=== PATIENT | male | born 2000 | race Two or more races ===

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

== ENCOUNTER 2021-09-21 14:39 | Emergency (ER) | payer MEDICAID ==
[2021-09-21] MEDS ORDERED: IBUP800T27 PO (17:00)
[2021-09-21 17:13] VITALS: BP 154/98
== END 2021-09-21 17:30 | disposition home or self-care (01) ==
LOC: ER 14:39
DX: M25.572 Pain in left ankle and joints of left foot (principal); R20.0 Anesthesia of skin; J45.909 Unspecified asthma, uncomplicated; X58.XXXA Exposure to other specified factors, initial encounter; Y93.89 Activity, other specified; Y92.89 Other specified places as the place of occurrence of the external cause; Y99.8 Other external cause status

== ENCOUNTER 2023-07-30 23:58 | Emergency (ER) | payer MEDICAID ==
[~2023-07-30] VITALS: Ht 177.8 cm; Wt 102.0 kg
[~2023-07-30 23:58] MED LIST: IBUP-1456 PO
[2023-07-31] MEDS: ONDANSETRON ODT 4 MG TAB PO ONE (00:44)
[2023-07-31] MEDS: HYDROcodone-ACET 10/325MG TAB PO ONE (00:44)
[2023-07-31] MEDS ORDERED: ACE3T PO (01:53)
[2023-07-31] MEDS ORDERED: IBUP-1455 PO (01:53)
[2023-07-31 02:04] VITALS: BP 114/67; PULSE 68; RESP 18; TEMP 97.5; O2SAT 97
== END 2023-07-31 02:06 | disposition home or self-care (01) ==
LOC: ER 23:58
DX: S16.1XXA Strain of muscle, fascia and tendon at neck level, initial encounter (principal); S09.8XXA Other specified injuries of head, initial encounter; J45.909 Unspecified asthma, uncomplicated; W18.09XA Striking against other object with subsequent fall, initial encounter; Y93.89 Activity, other specified; Y92.89 Other specified places as the place of occurrence of the external cause; Y99.8 Other external cause status
CPT/HCPCS: 70450; 72125; 99284; Q0162

== ENCOUNTER 2024-02-13 15:01 | Emergency (ER) | payer MEDICAID ==
[~2024-02-13] VITALS: Ht 177.8 cm; Wt 98.8 kg
[~2024-02-13 15:01] MED LIST changes: +ACE3T PO; +IBUP-1455 PO
[2024-02-13 15:18] VITALS: BP 127/75; PULSE 65; RESP 16; O2SAT 97
[2024-02-13] MEDS: ONDANSETRON ODT 4 MG TAB PO ONE (15:59)
[2024-02-13] MEDS: ACETAMINOPHEN 325 MG TAB PO ONE (15:59)
[2024-02-13 16:56] VITALS: TEMP 98
[2024-02-13] MEDS ORDERED: IBUP-1454 PO (16:57)
[2024-02-13] MEDS ORDERED: PROM1SOL4 PO (16:57)
[2024-02-13] MEDS ORDERED: ZOFR4T PO (16:57)
--- NOTE | 2024-02-13 16:57 | ED.PDOC ---
History of Present Illness HPI Comments 23-year-old male with a MHx presents with a chief complaint of URI symptoms x3 days. Not taking medications for the symptoms listed above Denies fevers chills night sweats unintentional weight loss Denies persistent chest pain, shortness of breath, leg swelling Denies history of asthma nor any breathing conditions Denies history of pneumonia Denies recent international travel Chief Complaint: Fever Time Seen by MD: 15:05 Past Medical History PAST MEDICAL HISTORY: Asthma Surgical History: Denies all surgeries Family History Family History: Unknown Social History Smoker: Non-Smoker Alcohol: Rarely Drugs: Denies Drug Use Lives In: Home All Other Systems: Reviewed and Negative (per hpi) Physical Exam General Appearance: No Apparent Distress, Normal HEENT: Normal ENT Inspection, Pharynx Normal, TMs Normal Neck: Full Range of Motion, Non-Tender, Normal, Normal Inspection Respiratory: Chest Non-Tender, Lungs Clear, No Accessory Muscle Use, No Respiratory Distress, Normal Breath Sounds Cardiovascular: No Edema, No JVD, No Murmur, No Gallop, Normal Peripheral Puls es, Regular Rate/Rhythm Breast Exam: Deferred Gastrointestinal: No Organomegaly, Non Tender, No Pulsatile Mass, Normal Bowel Sounds, Soft Genitalia: Deferred Pelvic: Deferred Rectal: Deferred Extremities: No calf tenderness, Normal capillary refill, Normal inspection, Normal range of motion, Non-tender, No pedal edema Musculoskeletal : Apperance: Normal Neurologic: Alert, manager social services II-XII nml as Tested, No Motor Deficits, Normal Affect, Normal Mood, No Sensory Deficits Cerebellar Function: Normal Reflexes: Normal Skin: Dry, Normal Color, Warm Lymphatic: No Adenopathy Was a procedure done? Was a procedure done?: No Fever Differential Dx Differential Diagnosis: Viral Syndrome X-Ray, Labs, Meds, VS Vital Signs Date Time Temp Pulse Resp B/P (MAP) Pulse Ox O2 Delivery O2 Flow Rate FiO2 02/13/24 16:56 98.0 98.0 02/13/24 16:56 98.0 02/13/24 15:18 96.5 65 16 127/75 (92) 97 96.5 02/13/24 15:18 65 16 97 Room Air 02/13/24 15:10 96.5 65 16 127/75 (92) 97 X-Ray, Labs, Meds, VS Comment History and physical consistent of URI Take medication as prescribed Based on shared decision-making patient agreed to empiric treatment Discussed that cough can linger up to 6 weeks after viral URI ED precautions if cough does not alleviate or if cough worsens Supportive care and return precautions discussed Counseled viral infection and explained that antibiotics would not be helpful in resolving the illness sooner. Recommended vitamin C, rest, handwashing, and symptomatic care. Expect 2-week course with possibly of cough lingering up to 6 weeks. Nonpharmacological remedies for fluids has been recommended as well On reevaluation, patient had symptomatic improvement. Patient is stable for discharge at this time. External notes reviewed. Test results and diagnostic imaging interpreted. All diagnostic findings, discharge care, education and instructions provided Follow-up with PCP in 2 to 3 days Patient verbalized understanding and agreed to treatment plan Vital signs stable, afebrile, no acute distress noted Patient ambulatory with strong steady gait Advised to return precautions for any new or worsening symptoms, return to ER immediately for re-evaluation Patient is aware that the purpose of this visit was for an acute medical emergency requiring emergent stabilization. Chronic conditions, including malignancies have not been ruled out. Patient is instructed to follow up with PCP as directed and discharge instructions for continued care and workup. If unable to arrange follow-up, patient is to return to the emergency department for reassessment. Patient (parent or legal guardian if applicable) was given verbal and written discharge instructions and acknowledges understanding. Time of 1ST Reevaluation: 16:30 Reevaluation 1ST: Improved Patient Education/Counseling: Diagnosis, Treatment Family Education/Counseling: Diagnosis, Treatment Departure 1 Departure Time of Disposition: 16:56 Impression: Primary Impression: Viral syndrome Disposition: 01 HOME / SELF CARE / HOMELESS Condition: Stable e-Prescriptions Promethazine-Dm (Promethazine Dm 6.25-15 mg/5Ml) 1 Maria Elena Maria Elena 5 ML PO TID for 10 Days, #150 ML 0 Refills Prov: QUENTIN CHAUDHRY [employer] 02/13/24 Ibuprofen (Ibuprofen) 600 Mg Tab 1 TAB PO TID for 10 Days, #30 TAB 0 Refills Prov: QUENTIN CHAUDHRY [employer] 24 Ondansetron Odt 4MG Tab (ZOFRAN PO) 4 Mg Tb 4 MG PO DAILYP PRN for 3 Days, #3 TAB 0 Refills ODT TAB-DISSOLVE IN MOUTH, THEN SWALLOW Prov: QUENTIN CHAUDHYR NP 02/13/24 Discharged With: Self Critical Care Note Critical Care Time?: No Stability Stability form required: No Heart Score Heart Score: Heart Score Response (Comments) Value History N/A 0 EKG N/A 0 Age N/A 0 Risk Factors N/A 0 Troponin N/A 0 Total 0 QUENTIN CHAUDHRY NP Feb 13, 2024 16:57
== END 2024-02-13 16:57 | disposition home or self-care (01) ==
LOC: ER 15:01
DX: B34.9 Viral infection, unspecified (principal); J45.909 Unspecified asthma, uncomplicated
CPT/HCPCS: 99283; Q0162